=== PATIENT | female | born 1970 | race African-American/Black ===

== ENCOUNTER 2021-03-01 09:59 | Emergency (ER) | payer MEDICAID, OTHER ==
[~2021-03-01] VITALS: Ht 162.6 cm; Wt 96.6 kg
[2021-03-01 10:53] LABS: Basophils # (auto) 0.1 10 ^3/uL (0-0.2); Eosinophils # (auto) 0.1 10 ^3/uL (0-0.8); Monocytes # (auto) 0.5 10 ^3/uL (0-1.3); Neutrophils % (auto) 51.3 % (37.0-80.0); Nucleated Red Blood Cells % 0.1 %
[2021-03-01 10:55] LABS: Basophils % (auto) 1.6 % (0.0-2.0); Hematocrit 43.2 % (36.0-46.0); Hemoglobin 14.9 g/dL (12.2-16.2); Lymphocytes # (auto) 1.8 10 ^3/uL (0.4-5.4); Lymphocytes % (auto) 35.7 % (10.0-50.0); Mean Corpuscular Hemoglobin 34.7 pg (28.0-32.0); Mean Corpuscular Hgb Conc. 34.6 g/dL (32.0-36.0); Mean Corpuscular Volume 100.3 fL (80.0-100.0); Monocytes % (auto) 9.4 % (0.0-12.0); Neutrophils # (auto) 2.6 10 ^3/uL (1.6-8.6); Red Blood Cells 4.31 10^6/uL (4.0-5.20); Red Cell Distribution Width 12.9 % (11.8-14.3); White Blood Cell 5.1 10^3/uL (4.4-10.8)
[2021-03-01 10:56] LABS: Albumin 3.9 g/dL (3.4-5.0); Calcium 8.8 mg/dL (8.5-10.1); Magnesium 2.3 mg/dL (1.6-2.6); Potassium 4.2 mmol/L (3.5-5.1)
[2021-03-01 11:06] LABS: BUN/Creatinine Ratio 16.9; Bilirubin, Total 0.8 mg/dL (0.2-1.0); Total Protein 8.6 g/dL (6.4-8.2)
[2021-03-01 11:24] LABS: Urine Bacteria FEW /hpf (None Seen); Urine Blood Negative /uL (Negative); Urine Hyaline Cast FEW /lpf (0 - 2); Urine Mucus FEW (None Seen); Urine Specific Gravity 1.027 (1.001-1.035); Urine WBC 3 /hpf (0 - 5)
[2021-03-01] MEDS ORDERED: ASPirin 81 mg TAB PO ONE (11:45)
[2021-03-01] MEDS ORDERED: ENOXAPARIN SOD 100 MG/1 ML SYRINGE SC ONE (11:45)
[2021-03-01] MEDS ORDERED: LABETALOL HCL 5 MG/ML 4ML SYRINGE IV ONE (12:30)
[2021-03-01 13:13] LABS: Cholesterol 264 mg/dL (< 200)
[2021-03-01 13:16] LABS: HDL Cholesterol 73 mg/dL (40-59); LDL Cholesterol 162 mg/dL (< 100); Triglycerides 179 mg/dL (< 150)
[2021-03-01] MEDS ORDERED: LISINOPRIL 5 MG TAB PO SCH (13:30)
[2021-03-01 14:00] VITALS: BP 185/113
[2021-03-01] MEDS ORDERED: hydrALAZINE HCL 20 MG/ML VL IV ONE (14:30)
[2021-03-01] MEDS ORDERED: METOPROLOL TARTRATE 25 MG TAB PO SCH (14:30)
== END 2021-03-01 14:58 | disposition left against medical advice (07) ==
LOC: ER 09:59
DX: I21.4 Non-ST elevation (NSTEMI) myocardial infarction (principal); I16.0 Hypertensive urgency; R10.84 Generalized abdominal pain; Z20.822 Contact with and (suspected) exposure to COVID-19
CPT/HCPCS: 36415; 71045; 74176; 80053; 80061; 81001; 82150; 83690; 83735; 84484; 85025; 87426; 93005; 96372; 96374; 96375; 99285; J0360; J1650; J3490